=== PATIENT | male | born 1950 | race Caucasian/White ===

== ENCOUNTER 2017-12-27 13:50 | Emergency (ER) | payer OTHER, MEDICARE ==
[2017-12-27 15:20] LABS: BASO # 0.1 10^3/uL (0.0-0.2); BASO % 0.9 % (0.0-1.0); EOS # 0.2 10^3/uL (0.0-0.50); EOS % 2.1 % (0.0-3.0); HEMATOCRIT 43.9 % (42.0-52.0); HEMOGLOBIN 14.8 g/dl (13.5-17.5); IMMATURE GRANULOCYTE % 0.4 % (0-3.0); LYMPH # 1.8 10^3/uL (1.5-4.5); LYMPH % 25.4 % (24.0-44.0); MEAN CORPUSCULAR HEMOGLOBIN 31.4 pg (27.0-33.0); MEAN CORPUSCULAR HGB CONC 33.7 g/dl (32.0-36.5); MONO # 0.8 10^3/uL (0.0-0.8); MONO % 11.1 % (0.0-5.0); NEUTROPHILS # 4.2 10^3/uL (1.8-7.7); NEUTROPHILS % 60.1 % (36.0-66.0); PLATELET COUNT, AUTOMATED 382 10^3/uL (150-450); RED BLOOD COUNT 4.72 10^6/uL (4.30-6.10); RED CELL DISTRIBUTION WIDTH 12.7 % (11.5-14.5)
[2017-12-27] MEDS: methylPREDNISolone INJ 125 MG/2 ML VIAL (J2930) IV (15:33)
[2017-12-27 15:43] LABS: ANION GAP 4 MEQ/L (8-16); BLOOD UREA NITROGEN 16 MG/DL (7-18); CALCIUM LEVEL 7.5 MG/DL (8.8-10.2); CARBON DIOXIDE LEVEL 29 MEQ/L (21-32); CHLORIDE LEVEL 109 MEQ/L (98-107); CPK CREATINE PHOSPHOKINASE 31 U/L (39-308); CREATININE FOR GFR 0.67 MG/DL (0.70-1.30); GLOMERULAR FILTRATION RATE > 60.0 (>49); GLUCOSE, FASTING 67 MG/DL (70-100); POTASSIUM SERUM 3.8 MEQ/L (3.5-5.1); SODIUM LEVEL 142 MEQ/L (136-145); TROPONIN I < 0.02 NG/ML (< 0.10)
[2017-12-27 15:44] LABS: CK-MB VALUE MASS < 1.0 NG/ML (<3.6); MB/CK RELATIVE INDEX 3.22 (< OR =4); NT-PRO BNP 134 PG/ML (<125)
[2017-12-27] MEDS: IPRATROPIUM 0.5MG/ALBUTEROL 2.5MG INH SOL UD 3ML (DUONEB)(J7620) NEB ×3 (15:46→17:46)
[2017-12-27 16:04] LABS: LACTIC ACID SEPSIS PROTOCOL 0.6 MMOL/L (0.4-2.0)
[2017-12-27 16:18] LABS: ABG BASE EXCESS 2.7 (-2.0-2.0); ABG HCO3 27.5 MEQ/L (22.0-26.0); ABG O2 SATURATION 93.6 % (95.0-99.0); ABG PARTIAL PRESSURE CO2 42.9 mmHg (35.0-45.0); ABG PARTIAL PRESSURE O2 65.2 mmHg (75.0-100.0); ABG STANDARD HCO3 26.8 MEQ/L (22.0-26.0); ABG TOTAL CO2 28.8 MEQ/L (23.0-31.0); ABG pH (ARTERIAL) 7.425 UNITS (7.350-7.450)
== END 2017-12-27 17:54 | disposition home or self-care (01) ==
LOC: M ED 13:50
DX: J44.1 Chronic obstructive pulmonary disease with (acute) exacerbation (principal); R94.31 Abnormal electrocardiogram [ECG] [EKG]; I10 Essential (primary) hypertension; Z87.01 Personal history of pneumonia (recurrent); Z87.891 Personal history of nicotine dependence; Z79.899 Other long term (current) drug therapy
CPT/HCPCS: J2930

== ENCOUNTER → 2020-03-18 | Outpatient (CLI) | payer MEDICARE, OTHER ==
[~2020-03-18] MED LIST: AMLO10TA PO; AMLO1TAB24 PO; ATOR40TA75 PO; CIPR-249 PO; DOCU100C16 PO; FURO20TA2 PO; LISI40TA PO; PERCOCET PO; PRED20TA PO; PROHANCE 279.3MG/ML 15ML VIAL As Ordered ONE; PROV108A INH; SPIR12.9 INH; SPIR1CAP INH; SYMB16INH INH; TIMO0.5S3 OU; TIMO0.5S39 OU; VITA50005 PO
--- NOTE | 2020-05-01 10:48 | REP ---
MULTIPARAMETRIC PROSTATE MRI STUDY WITHOUT AND WITH INTRAVENOUS (IV) GADOLINIUM HISTORY: Rising PSA. COMPARISON: None. CT CONTRAST DOSE: 13 mL of intravenous ProHance. MR TECHNIQUE: Axial, coronal, and sagittal imaging planes are utilized. T1 and T2-weighted sequences include spin echo, fat spin echo, diffusion-weighted scans, and dynamically acquired sequential postcontrast T1 fat sat images. Study is interpreted with an approved computer aided detection system ([email or web address]). Prostate gland is somewhat enlarged with dimensions of 4.6 x 3.2 x 3.2 cm, calculated volume 24.4 mL. There is no evidence of skeletal metastatic disease or pelvic or parapelvic lymphadenopathy. There is some hypertrophy of the central gland. There is a suspicious lesion in the anterior gland, which is large. It is located in the midline anterior base stroma, mid gland stroma, right anterior transition zone, and mid apical anterior stroma. It has a calculated volume of 3.5 mL and diameters of 2.6 x 1.4 x 2.1 cm. It is characterized by very low T2- weighted signal intensity, reduced signal on ACD and increased signal on diffusion-weighted sequences, and mixed distribution of enhancement characteristics. A good portion of the lesion enhances contemporaneously with the fairly vascular background prostate tissue with washout kinetics. Clinically significant cancer is highly likely. There is no apparent extraprostatic extent. There is a benign appearing nodule posterior to the low signal intensity lesion. PI-RADS Category 5 out of 5 lesion. Lesion number two is in the right mid lateral transition zone 0.3 mL in calculated volume, 1.2 x 0.6 x 1.0 cm in diameter. This is an ill-defined area of somewhat linear low T2 signal without alteration on diffusion-weighted sequences. There is no hypervascularity observed. Clinically significant cancer is felt to be unlikely. PI-RADS 2 out of 5. IMPRESSION: Large lesion in the anterior gland highly suspicious for prostate carcinoma. No evidence of extraprostatic extension. Two lesions are identified and submitted for consideration of MR ultrasound fusion directed needle biopsy. [facility]
== END ==
LOC: M RAD 11:30
PROVIDERS: ATTEND Nurse Practitioner Women's Health
DX: R97.20 Elevated prostate specific antigen [PSA] (principal); C61 Malignant neoplasm of prostate
CPT/HCPCS: 72197; A9576

== ENCOUNTER → 2020-04-08 | Outpatient (REF) | payer OTHER, MEDICARE ==
[~2020-04-08] MED LIST changes: -PROHANCE 279.3MG/ML 15ML VIAL As Ordered ONE
--- NOTE | 2020-05-09 08:47 | REPPI ---
HISTORY: Prostate cancer, elevated PSA. FINDINGS: Transrectal ultrasound guidance was provided for Dr. Harrison, who performed ultrasound-guided biopsy of the prostate. Biopsy is performed using MR ultrasound fusion with utilization of the MRI prostate 03/18/20. [facility]
== END ==
LOC: M SMT PRO 12:55
PROVIDERS: ATTEND Urology
DX: C61 Malignant neoplasm of prostate (principal)
CPT/HCPCS: 55700; 76942; G0416; G0463

== ENCOUNTER → 2020-04-24 | Outpatient (CLI) | payer OTHER, MEDICARE | LOC: M LABSMTC 11:57 | PROVIDERS: ATTEND Anesthesiology | DX: Z01.812 Encounter for preprocedural laboratory examination (principal); Z20.828 Contact with and (suspected) exposure to other viral communicable diseases | CPT/HCPCS: C9803; U0003 ==

== ENCOUNTER 2020-04-29 05:57 | Inpatient (IN) | payer OTHER ==
[~2020-04-29] VITALS: Ht 167.6 cm; Wt 70.8 kg
[2020-04-29] VITALS (8 sets, daily range): BP systolic 120–145; BP diastolic 55–65
[~2020-04-29 05:57] MED LIST changes: -CIPR-249 PO; -DOCU100C16 PO; -PERCOCET PO; -SPIR12.9 INH; -TIMO0.5S3 OU
[2020-04-29] MEDS ORDERED: HEPARIN SOD (PORCINE) 5000UNITS/ML 1ML VIAL/SYRINGE As Ordered ONE (06:16)
[2020-04-29] MEDS ORDERED: ceFAZolin 2 GM/D5W 50 ML IV BAG (J0690 PER 500MG) As Ordered ONE (06:16)
[2020-04-29] MEDS ORDERED: LR 1,000 ML IV ONE (06:30)
[2020-04-29] MEDS ORDERED: ceFAZolin SOD 2 GM in IV 1 EA IV ONE (06:30)
[2020-04-29] MEDS ORDERED: HEPARIN SOD (PORCINE) 5000UNITS/ML 1ML VIAL/SYRINGE SQ ONE (06:30)
[2020-04-29] MEDS ORDERED: MIDAZOLAM INJ 2MG/2ML VIAL (J2250 PER 1MG) As Ordered ONE (07:00)
[2020-04-29] MEDS ORDERED: fentaNYL 250 MCG/5 ML INJECTION (J3010) As Ordered ONE (07:00)
[2020-04-29] MEDS ORDERED: propofoL 500 MG/50 ML VIAL As Ordered ONE (07:01)
[2020-04-29] MEDS ORDERED: ROCURONIUM BROMIDE 50 MG/5 ML VIAL As Ordered ONE (07:04)
[2020-04-29] MEDS ORDERED: LIDOCAINE 2% 100MG/5ML SDV (FOR ANES.) As Ordered ONE (07:04)
[2020-04-29] MEDS ORDERED: ONDANSETRON 4MG/2ML VIAL As Ordered ONE (07:14)
[2020-04-29] MEDS ORDERED: dexameTHASONE 4 MG/ML 1ML VIAL (J1100 PER 1MG) As Ordered ONE (07:14)
[2020-04-29] MEDS ORDERED: BUPIVACAINE HCL 0.25% 30ML VIAL As Ordered ONE ×2 (07:19→07:20)
[2020-04-29] MEDS ORDERED: LIDOCAINE 1% SDV 30ML VIAL As Ordered ONE (07:19)
[2020-04-29] MEDS ORDERED: ACETAMINOPHEN TAB 650MG DOSE (2X325MG) PO PRN (07:45)
[2020-04-29] MEDS ORDERED: PERCOCET 5MG/325MG TAB PO PRN (07:45)
[2020-04-29] MEDS ORDERED: MORPHINE 2 MG/ML 1ML VIAL (J2270) IV PRN ×2 (07:45→12:45)
[2020-04-29] MEDS ORDERED: ALBUTEROL 90 MCG/ACT 8GM HFA INHALER INH PRN (07:45)
[2020-04-29] MEDS ORDERED: ONDANSETRON 4MG/2ML VIAL IV PRN ×2 (07:45→12:45)
[2020-04-29] MEDS: HEPARIN SOD (PORCINE) 5000UNITS/ML 1ML VIAL/SYRINGE SC SCH (07:49)
[2020-04-29] MEDS ORDERED: METOCLOPRAMIDE INJ 10MG/2ML VIAL (J2765 PER 1) As Ordered ONE (08:20)
[2020-04-29] MEDS ORDERED: TIMO0.5S3 OU (08:28)
[2020-04-29] MEDS ORDERED: SPIR12.9 INH (08:28)
[2020-04-29] MEDS ORDERED: SUGAMMADEX SODIUM 500 MG/5 ML VIAL (BRIDION) As Ordered ONE (08:30)
[2020-04-29] MEDS ORDERED: VECURONIUM BROMIDE 10MG VIAL As Ordered ONE (08:31)
[2020-04-29] MEDS ORDERED: GLYCOPYRROLATE INJ 0.2 MG/ML 2 ML VIAL As Ordered ONE (08:55)
[2020-04-29] MEDS ORDERED: amLODIPine 5 MG TAB PO SCH (09:00)
[2020-04-29] MEDS ORDERED: ACETAMINOPHEN 1000MG 100ML IV BTL (OFIRMEV) (J0131 PER 10MG) As Ordered ONE (09:31)
[2020-04-29] MEDS ORDERED: HYDROmorphone HCL 2 MG/ML 1ML VIAL (J1170) As Ordered ONE (10:56)
[2020-04-29] MEDS ORDERED: ALBUTEROL SULFATE 2.5 MG/0.5 ML INH NEB SOLN As Ordered ONE (12:00)
[2020-04-29] MEDS ORDERED: oxyCODONE 5MG TAB As Ordered ONE (12:16)
[2020-04-29] MEDS: oxyCODONE 5MG TAB PO PRN ×2 (12:19→12:57)
[2020-04-29 12:25] LABS: HEMATOCRIT 46.8 % (42.0-52.0); HEMOGLOBIN 15.3 g/dl (13.5-17.5); MEAN CORPUSCULAR HEMOGLOBIN 31.8 pg (27.0-33.0); MEAN CORPUSCULAR HGB CONC 32.7 g/dl (32.0-36.5); MEAN CORPUSCULAR VOLUME 97.3 fl (80.0-96.0); PLATELET COUNT, AUTOMATED 254 10^3/uL (150-450); RED BLOOD COUNT 4.81 10^6/uL (4.30-6.10); WHITE BLOOD COUNT 9.6 10^3/uL (4.0-10.0)
[2020-04-29] MEDS ORDERED: METOCLOPRAMIDE INJ 10MG/2ML VIAL (J2765 PER 1) IV PRN (12:45)
[2020-04-29] MEDS ORDERED: LR 1,000 ML IV SCH (12:45)
[2020-04-29] MEDS ORDERED: ALBUTEROL SULFATE 2.5 MG/0.5 ML INH NEB SOLN INH ONE (12:45)
[2020-04-29] MEDS ORDERED: fentaNYL 100 MCG/2 ML INJECTION (J3010) IV PRN (12:45)
--- NOTE | 2020-04-29 12:47 | ROOPDOC ---
[facility] Report Of Operation Report of Operation DATE OF PROCEDURE: 04/29/20 PREPROCEDURE DIAGNOSES: Prostate Cancer. POSTPROCEDURE DIAGNOSES: Prostate Cancer, Ventral Hernia. PROCEDURE: Robotic-assisted Laparoscopic Radical Prostatectomy with Bilateral Pelvic Lymph Node Dissection, Ventral Hernia Repair. SURGEON: Whitney Lazo MD JUNIOR ACCOUNTANT: Angela Syed NP ANESTHESIA: General. OPERATIVE INDICATIONS: This is a 70 year old male with intermediate risk clinical T1c [place] 3+4 prostate cancer, here today for the above procedure for treatment. DESCRIPTION OF PROCEDURE: The patient was brought to the operating room and general anesthesia was induced. Prophylactic antibiotics were infused. He was then placed in the supine position and prepped and draped in the usual sterile fashion. At this point, a Hurst catheter was inserted into the bladder and the balloon was filled with 10 mL of sterile water. We then made a midline incision just above the umbilicus for an 8 mm port. Of note the patient was found to have a ventral hernia containing a small amount of omentum just above the supraumbilical incision. A Veress needle was utilized to achieve pneumoperitoneum. Next, an 8 mm port was inserted into the incision and subsequently a camera was inserted. There were no injuries from the Veress needle or initial trocar placement. Then three robotic ports were placed in the usual configuration in line just below the level of the umbilicus. A 12 mm certified ophthalmic surgical assistant port was placed just la teral and at the level of the umbilicus. Once all the ports were placed, the robot was docked. Lysis of adhesions between the sigmoid colon and abdominal wall was then performed. Next, the bladder was then released from the anterior abdominal wall using electrocautery. Once the bladder was dropped, the fat overlying the prostate was cleared using electrocautery. The superficial dorsal vein was controlled with electrocautery. The endopelvic fascia was opened on both sides and the dorsal venous complex was cleared. Next, a #0 Vicryl [id number] stitch was placed around the dorsal venous complex. Once that was done, the bladder was opened and dissected away from the prostate. At this point, the prostate was lifted up. The vasa deferentia were identified in the midline. They were controlled with electrocautery and then transected. The seminal vesicles were also dissected off bilaterally. After carefully dissecting the prostate off the rectum using cold scissors, and ligating and transecting the pedicles, the prostate was only connected by the urethra. At this point, the dorsal venous complex was transected with electrocautery. The urethra was then opened and the catheter was withdrawn and the posterior urethra was transected, thus freeing the prostate. At this point, we checked for hemostasis and it did appear very good. Next, we performed bilateral pelvic lymph node dissection. This was done in a standard fashion. The limits of dissection were the iliac vein proximally, the obturator nerve distally, the pelvic sidewall laterally, and the bladder medially. All lymphatic tissue within these limits was removed. I performed the same procedure on both the right and left sides. Hemostasis was then obtained. The lymphatic packets were then placed in separate Endo Catch bags for future retrieval. Once hemostasis was confirmed, I then moved on to perform the vesicourethral anastomosis. The vesicourethral anastomosis was performed in running fashion using a Quill stitch. Once this was done, the final #20-Greek Hurst catheter was placed. The balloon was filled with 15 mL of sterile water. Upon completion of the vesicourethral anastomosis, it was tested by filling the bladder with sterile water. The anastomosis appeared to be watertight. At this point, the prostate and seminal vesicles were placed in an Endo Catch bag for future retrieval. The robot was then undocked. A Chaya fascial closure device was utilized to place a #0 Vicryl suture between the fascia of the 12 mm certified ophthalmic surgical assistant port. At this point, a Fabian- Ordaz drain was brought in through the left robotic port skin site and the drain was positioned anterior to the bladder. The drain was secured to the skin with #2-0 Ethilon suture. Next, all the remaining ports were removed and there did not appear to be any bleeding from any of the port sites. The prostate, as well as the lymphatic packets were then extracted from the camera port site after the skin was extended. The fascia in this incision was then closed with a running #0 Vicryl stitch. Of note the contents of the ventral hernia were reduced back into the abdomen, and the ventral hernia was closed along with the extraction incision. The previously placed #0 Vicryl free ties through the certified ophthalmic surgical assistant port were then tied down and all incisions were irrigated. Last, all of the incisions were closed with running subcuticular #4-0 Monocryl sutures. Local anesthesia was applied. Dermabond was then applied to the incisions. This marked the conclusion of the procedure. The patient was then awakened from anesthesia and transported to the recovery room in stable condition. ESTIMATED BLOOD LOSS: 75 mL. COMPLICATIONS: None. SPECIMENS: Prostate and seminal vesicles, right pelvic lymph nodes, left pelvic lymph nodes. PLAN: The patient will be admitted to the hospital postoperatively, and he will likely be discharged home within the next 1-2 days. WHITNEY LAZO MD Apr 29, 2020 12:47
[2020-04-29 12:56] LABS: BLOOD UREA NITROGEN 14 MG/DL (7-18); CALCIUM LEVEL 8.6 MG/DL (8.8-10.2); CARBON DIOXIDE LEVEL 27 MEQ/L (21-32); CHLORIDE LEVEL 105 MEQ/L (98-107); CREATININE FOR GFR 1.12 MG/DL (0.70-1.30); GLOMERULAR FILTRATION RATE > 60.0 (>42); GLUCOSE, FASTING 130 MG/DL (70-100); POTASSIUM SERUM 4.3 MEQ/L (3.5-5.1); SODIUM LEVEL 137 MEQ/L (136-145)
[2020-04-29] MEDS: SYMBICORT 160/4.5MCG INHALER 6GM INH SCH ×2 (13:25→20:38)
[2020-04-29] MEDS: TIOTROPIUM INHALER/CAPSULE (SPIRIVA) INH SCH (13:25)
[2020-04-29] MEDS: TIMOLOL MALEATE 0.5% OPHTH SOLN 5 ML OU SCH (15:26)
[2020-04-29] MEDS: DOCUSATE SODIUM 100 MG CAP PO SCH ×2 (15:26→20:20)
[2020-04-29] MEDS: FUROSEMIDE 20 MG TAB PO SCH (15:54)
[2020-04-29] MEDS: ATORVASTATIN 20 MG TAB PO SCH (15:54)
[2020-04-29] MEDS: NS 1,000 ML IV SCH (16:03)
[2020-04-29] MEDS: ceFAZolin SOD 1 GM in D5W MINI-BAG PLUS 50 ML IV SCH (16:03)
[2020-04-30] VITALS (7 sets, daily range): BP systolic 116–166; BP diastolic 58–79
[2020-04-30] MEDS: ceFAZolin SOD 1 GM in D5W MINI-BAG PLUS 50 ML IV SCH (00:10)
[2020-04-30] MEDS: HEPARIN SOD (PORCINE) 5000UNITS/ML 1ML VIAL/SYRINGE SC SCH ×3 (05:14→19:57)
[2020-04-30] MEDS: NS 1,000 ML IV SCH (06:33)
[2020-04-30] MEDS: PERCOCET 5MG/325MG TAB PO PRN ×2 (06:35→20:18)
[2020-04-30 07:16] LABS: HEMATOCRIT 40.6 % (42.0-52.0); HEMOGLOBIN 13.5 g/dl (13.5-17.5); MEAN CORPUSCULAR HEMOGLOBIN 32.2 pg (27.0-33.0); MEAN CORPUSCULAR HGB CONC 33.3 g/dl (32.0-36.5); MEAN CORPUSCULAR VOLUME 96.9 fl (80.0-96.0); PLATELET COUNT, AUTOMATED 233 10^3/uL (150-450); RED BLOOD COUNT 4.19 10^6/uL (4.30-6.10); WHITE BLOOD COUNT 10.4 10^3/uL (4.0-10.0)
[2020-04-30 07:33] LABS: BLOOD UREA NITROGEN 12 MG/DL (7-18); CALCIUM LEVEL 8.1 MG/DL (8.8-10.2); CARBON DIOXIDE LEVEL 26 MEQ/L (21-32); CHLORIDE LEVEL 105 MEQ/L (98-107); CREATININE FOR GFR 0.94 MG/DL (0.70-1.30); GLOMERULAR FILTRATION RATE > 60.0 (>42); GLUCOSE, FASTING 112 MG/DL (70-100); POTASSIUM SERUM 4.2 MEQ/L (3.5-5.1); SODIUM LEVEL 136 MEQ/L (136-145)
[2020-04-30] MEDS: TIOTROPIUM INHALER/CAPSULE (SPIRIVA) INH SCH (07:33)
[2020-04-30] MEDS: SYMBICORT 160/4.5MCG INHALER 6GM INH SCH ×2 (07:34→19:32)
--- NOTE | 2020-04-30 07:43 | IPNPDOC ---
Subjective Review oF Systems Chief Complaint The patient is a 70-year-old male admitted with a reason for visit of Prostate Cancer. Events since Last Encounter No acute events o/n. Good pain control. No n/v. Tolerating GI soft diet. Has not ambulated yet. No f/c/ns. Objective Physical Examination General Exam: Alert, Cooperative, No Acute Distress ABDOMEN EXAM: Soft, Tenderness (minimal), Other (incisions clean/dry/intact; TONY w/ serosanguinous output) Other physical findings catheter draining kiara yellow urine Vital Signs/I&O Vital Signs Date Time Temp Pulse Resp B/P (MAP) Pulse Ox O2 Delivery O2 Flow Rate FiO2 04/30/20 06:35 20 04/30/20 06:00 98.5 57 120/58 (78) 94 Nasal Cannula 2.0 I&O- Last 24 Hours up to 6 AM 04/30/20 06:00 Intake Total 2295 ml Output Total 1290 ml Balance 1005 ml Laboratory Data Labs 24H Laboratory Tests 2 04/29/20 12:11: Nucleated Red Blood Cells % (auto) 0.0, Anion Gap 5L, Glomerular Filtration Rate > 60.0, Calcium Level 8.6L 04/30/20 06:46: Nucleated Red Blood Cells % (auto) 0.0, Anion Gap 5L, Glomerular Filtration Rate > 60.0, Calcium Level 8.1L CBC/BMP Laboratory Tests 04/29/20 12:11 04/30/20 06:46 Assessment/Plan Date Seen The patient was seen on 04/30/20. Patient Summary This is a 70 y/o M POD1 s/p RALP w/ BPLND and ventral hernia repair. He is doing well. Hb 13.5 Cr 0.9. Good UOP. Minimal TONY output. Plan/VTE VTE Prophylaxis Ordered?: Yes VTE Exclusion Mechanical Proph: N/A:VTE Prophy Ordered VTE Exclusion Pharmacological: N/A:VTE Prophy Ordered Plan/Urinary Catheter Urinary Catheter: Other Catheter: (catheter needs to stay in for at least 7 days for healing of vesicourethral anastomosis) Plan - d/c IVF - continue home meds - percocet prn pain - ambulate - SCDs when in bed - SQH - incentive spirometry - advance diet as tolerated - possible discharge home later today w/ catheter WHITNEY LAZO MD Apr 30, 2020 07:43
[2020-04-30] MEDS ORDERED: amLODIPine 5 MG TAB PO SCH (09:00)
[2020-04-30] MEDS: FUROSEMIDE 20 MG TAB PO SCH (09:35)
[2020-04-30] MEDS: lisinopriL 20 MG TAB PO SCH (09:35)
[2020-04-30] MEDS: TIMOLOL MALEATE 0.5% OPHTH SOLN 5 ML OU SCH (09:35)
[2020-04-30] MEDS: DOCUSATE SODIUM 100 MG CAP PO SCH ×2 (09:35→19:57)
[2020-04-30] MEDS: ATORVASTATIN 20 MG TAB PO SCH (09:35)
[2020-05-01 02:00] VITALS: BP 126/71
[2020-05-01 06:00] VITALS: BP 144/80
[2020-05-01] MEDS: HEPARIN SOD (PORCINE) 5000UNITS/ML 1ML VIAL/SYRINGE SC SCH ×3 (06:00→20:28)
[2020-05-01 06:55] LABS: HEMATOCRIT 40.9 % (42.0-52.0); HEMOGLOBIN 13.6 g/dl (13.5-17.5); MEAN CORPUSCULAR HEMOGLOBIN 32.3 pg (27.0-33.0); MEAN CORPUSCULAR HGB CONC 33.3 g/dl (32.0-36.5); MEAN CORPUSCULAR VOLUME 97.1 fl (80.0-96.0); PLATELET COUNT, AUTOMATED 222 10^3/uL (150-450); RED BLOOD COUNT 4.21 10^6/uL (4.30-6.10); WHITE BLOOD COUNT 9.4 10^3/uL (4.0-10.0)
[2020-05-01 07:19] LABS: BLOOD UREA NITROGEN 13 MG/DL (7-18); CALCIUM LEVEL 8.3 MG/DL (8.8-10.2); CARBON DIOXIDE LEVEL 28 MEQ/L (21-32); CHLORIDE LEVEL 104 MEQ/L (98-107); CREATININE FOR GFR 0.78 MG/DL (0.70-1.30); GLOMERULAR FILTRATION RATE > 60.0 (>42); GLUCOSE, FASTING 89 MG/DL (70-100); POTASSIUM SERUM 4.1 MEQ/L (3.5-5.1); SODIUM LEVEL 138 MEQ/L (136-145)
[2020-05-01] MEDS: SYMBICORT 160/4.5MCG INHALER 6GM INH SCH ×2 (07:25→17:59)
[2020-05-01] MEDS ORDERED: CALCIUM CARBONATE 500 MG CHEW U/D PO PRN (08:15)
--- NOTE | 2020-05-01 08:29 | IPNPDOC ---
Subjective Review oF Systems Chief Complaint The patient is a 70-year-old male admitted with a reason for visit of Prostate Cancer. Events since Last Encounter Patient had a drop in O2 sat to the 70s when taken off supplemental O2 yesterday evening. He noted some SOB at the time. He has been stable back on 2L NC since then. Denies chest pain. Notes heartburn when eating. No n/v. Passing some flatus. Ambulating ok, but noted some weakness yesterday. No f/c/ns. Objective Physical Examination General Exam: Alert, Cooperative, No Acute Distress ABDOMEN EXAM: Soft, Tenderness (minimal), Other (incisions clean/dry/intact; TONY w/ serosanguinous output) Neuro Exam: Normal Speech Psych Exam: Mental status NL, Mood NL Other physical findings catheter draining light pink urine Vital Signs/I&O Vital Signs Date Time Temp Pulse Resp B/P (MAP) Pulse Ox O2 Delivery O2 Flow Rate FiO2 05/01/20 08:00 93 Nasal Cannula 2.0 05/01/20 06:00 97.9 50 18 144/80 (101) I&O- Last 24 Hours up to 6 AM 05/01/20 06:00 Intake Total 1550 ml Output Total 1045 ml Balance 505 ml Laboratory Data Labs 24H Laboratory Tests 2 05/01/20 06:32: Nucleated Red Blood Cells % (auto) 0.0, Anion Gap 6L, Glomerular Filtration Rate > 60.0, Calcium Level 8.3L CBC/BMP Laboratory Tests 05/01/20 06:32 Assessment/Plan Date Seen The patient was seen on 05/01/20. Patient Summary This is a 70 y/o M POD2 s/p RALP w/ BPLND and ventral hernia repair. Hb stable. Cr w/i normal limits. Good UOP. Minimal TONY output. Plan/VTE VTE Prophylaxis Ordered?: Yes VTE Exclusion Mechanical Proph: N/A:VTE Prophy Ordered VTE Exclusion Pharmacological: N/A:VTE Prophy Ordered Plan/Urinary Catheter Urinary Catheter: Other Catheter: (catheter needs to stay in for at least 7 days for healing of vesicourethral anastomosis) Plan - wean O2 as tolerated - ambulate - tums prn heartburn - continue home meds - strict I/Os - SCDs in bed - SQH - incentive spirometry - regular diet - possible discharge home later today WHITNEY LAZO MD May 01, 2020 08:29
[2020-05-01] MEDS: PERCOCET 5MG/325MG TAB PO PRN ×3 (09:03→20:31)
[2020-05-01] MEDS: ATORVASTATIN 20 MG TAB PO SCH (09:04)
[2020-05-01] MEDS: FUROSEMIDE 20 MG TAB PO SCH (09:05)
[2020-05-01] MEDS: TIMOLOL MALEATE 0.5% OPHTH SOLN 5 ML OU SCH (09:06)
[2020-05-01] MEDS: lisinopriL 20 MG TAB PO SCH (09:06)
[2020-05-01] MEDS: DOCUSATE SODIUM 100 MG CAP PO SCH ×2 (09:06→20:27)
[2020-05-01] MEDS: CIPROFLOXACIN 500MG TABLET PO SCH (09:06)
[2020-05-01 10:00] VITALS: BP 133/73
[2020-05-01 14:00] VITALS: BP 99/61
[2020-05-01] MEDS ORDERED: ISOVUE-370 76% 100ML VIAL As Ordered ONE (15:55)
--- NOTE | 2020-05-01 17:23 | REPVR ---
PROCEDURE INFORMATION: Exam: CT Angiography Chest With Contrast Exam date and time: 05/01/2020 4:32 PM Age: 70 years old Clinical indication: Shortness of breath; Additional info: SOB, post op, hypoxia TECHNIQUE: Imaging protocol: Computed tomographic angiography of the chest with intravenous contrast. 3D rendering (Not supervised by radiologist): MIP reconstructed images were created by the technologist. Radiation optimization: All CT scans at this facility use at least one of these dose optimization techniques: automated exposure control; mA and/or kV adjustment per patient size (includes targeted exams where dose is matched to clinical indication); or iterative reconstruction. Contrast material: ISOVUE 370; Contrast volume: 75 ml; Contrast route: INTRAVENOUS (IV); COMPARISON: CR PORTABLE CHEST X-RAY 12/27/2017 3:13 PM FINDINGS: Pulmonary arteries: Normal. No pulmonary emboli. Aorta: Moderate aortic arch, branch, and descending thoracic aortic atherosclerotic calcification without ectasia. Thyroid: The bilateral thyroid lobes are unremarkable. Lungs: A 4.9 mm noncalcified pulmonary nodule is noted in the lateral segment of the right middle lobe (LOC 244.9). Bilateral lower lobe pulmonary atelectasis. Bilateral lower lobe endobronchial mucous plugging. There is mild centrilobular and paraseptal emphysema bilaterally, most extensively in the upper lung zones. Pleural space: Minimal bilateral pleural effusions. No pneumothorax. Heart: Left main, LAD, LCx and RCA calcified coronary atherosclerosis. Lymph nodes: No enlarged lymph nodes. Bones/joints: Unremarkable. No acute fracture. Soft tissues: Left chest wall soft tissue emphysema. IMPRESSION: 1. No pulmonary embolism identified. 2. Bilateral lower lobe pulmonary atelectasis. 3. Bilateral lower lobe endobronchial mucous plugging. 4. Pulmonary emphysema. 5. Minimal bilateral pleural effusions. 6. Noncalcified right middle lobe pulmonary nodule. For patients at low risk (minimal or absent history of smoking and of other known risk factors), no routine follow-up is indicated. For patients at high risk (history of smoking or of other known risk factors), consider optional CT at 12 months. (Lucila et al., Fleischner Society, 2017). 7. Left chest wall soft tissue emphysema. Clinical correlation (procedural history? injury?) is recommended. 8. Coronary atherosclerosis. Electronically signed by: Chemo Javier On 05/01/2020 17:22:53 PM
[2020-05-01 17:47] LABS: ABG BASE EXCESS 2.1 (-2.0-2.0); ABG HCO3 26.3 MEQ/L (22.0-26.0); ABG O2 SATURATION 85.3 % (95.0-99.0); ABG PARTIAL PRESSURE CO2 39.7 mmHg (35.0-45.0); ABG TOTAL CO2 27.5 MEQ/L (23.0-31.0); ABG pH (ARTERIAL) 7.439 UNITS (7.350-7.450)
[2020-05-01 17:50] LABS: ABG PARTIAL PRESSURE O2 45.9 mmHg (75.0-100.0)
[2020-05-01 18:00] VITALS: BP 126/64
--- NOTE | 2020-05-01 18:15 | CR.PDOC ---
General Date of Consultation: May 01, 2020 Referring Provider: WHITNEY LAZO MD Consultation REASON FOR CONSULTATION/CHIEF COMPLAINT: Hypoxia HISTORY OF PRESENT ILLNESS: 70 year old male with PMH of COPD, CHF, GERD, Hiatal hernia, HTN, HLD, Prostate cancer was admitted under the urology service and underwent Robotic-assisted Laparoscopic Radical Prostatectomy with Bilateral Pelvic Lymph Node Dissection, Ventral Hernia Repair on 04/29/20. Today he is post op day 2 and patient still requiring 2 liters of oxygen. On ambulation patient is desaturating to 76% in room air and when ambulating with 2 L oxygen he is going down to 86%. At rest his oxygenation is 88% to 90% in room air. Patient tells me he has long h/o COPD not on oxygen however he becomes easily SOB on minor exertion and has to sit and rest and catch his breath this has been going on for many months. His PMD has said that his oxygen is low during office visits. He has seen the pulmonary at the [facility] 2 years ago but has not been able to see them since as his appointment was cancelled one then resceduled for earlier this year when the pandemic started so was cancelled again. He has chronic cough for 2 years and is able to bring up the phlegm maximum inthe morning when he wakes up. But now due to the pain after surgery having dif ficulty with coughing. ALLERGIES: Please see below. HOME MEDICATIONS: Please see below. PAST MEDICAL HISTORY: HTN, HLD, COPD, CHF, Prostate Cancer, GERD, Asthma as a child. PAST SURGICAL HISTORY: vasectomy FAMILY HISTORY: Asthma in father, Mother cancer SOCIAL HISTORY: Ex smoker REVIEW OF SYSTEMS: As per HPI. All other 11 points are negative PHYSICAL EXAMINATION: VITAL SIGNS: Please see below. GENERAL APPEARANCE: laying in bed in no distress, Oxygen saturation 85% at rest. HEENT: NC/AT moist mucous membranes. RESPIRATORY: Clear to auscultation, overall diminished breath sounds. CARDIOVASCULAR: s1, s2 regular, normal rate, No Rub/ Murmur or gallop ABDOMEN: Soft , tender in the lower abdomen at the surgical site, bowel sounds normal EXTREMITIES: No edema LABORATORY DATA: Please see below. ASSESSMENT/PLAN: COPD with Chronic bronchitis with atelectasis which has now progressed to needing oxygen at rest CT angio negative for PE , shows emphysema and endo bronchial mucous plugging of the lower lobes. minimal b/l pleural effusions Acapella, incentive spirometry. Encouraged to cough. continue symbicort, spiriva, lasix ABG shows hypoxia with pO2 of 45 at rest will need home oxygen with portability on discharge. Hypertension BP slightly low will hold night dose of amlodipine can continue lisinopril with hold parameters. HLD continue statin. Prostate cancer s/p surgery as per urology on ciprofloxacin. Vital Signs/I&O Vital Signs Date Time Temp Pulse Resp B/P (MAP) Pulse Ox O2 Delivery O2 Flow Rate FiO2 05/01/20 14:15 20 05/01/20 14:00 98.7 51 99/61 (74) 90 Room Air 05/01/20 10:00 2.0 I&O- Last 24 Hours up to 6 AM 05/01/20 07:00 Intake Total 1025 ml Output Total 1060 ml Balance -35 ml Laboratory Data Labs 24H Laboratory Tests 2 05/01/20 06:32: Nucleated Red Blood Cells % (auto) 0.0, Anion Gap 6L, Glomerular Filtration Rate > 60.0, Calcium Level 8.3L CBC/BMP Laboratory Tests 05/01/20 06:32 Allergies Coded Allergies: No Known Allergies (Unverified , 12/27/17) Home Medications Scheduled Amlodipine Besylate (Norvasc) 10 Mg Tablet, 5 MG PO DAILY, (Reported) Atorvastatin Calcium (Atorvastatin Calcium) 40 Mg Tablet, 20 MG PO DAILY, (Reported) Budesonide/Formoterol (Symbicort 160-4.5 Mcg Inhaler) 6 Gm Hfa.aer.ad, 2 PUFF INH BID, (Reported) Ciprofloxacin HCl (Cipro) 500 Mg Tablet, 500 MG PO DAILY@06 for 5 Days, #5 Docusate Sodium (Docusate Sodium) 100 Mg Capsule, 100 MG PO BID, #20 Ergocalciferol (Vitamin D2) (Vitamin D2) 50,000 Units Cap, 50,000 UNITS PO 1XWK, (Reported) Furosemide (Furosemide) 20 Mg Tablet, 20 MG PO DAILY, (Reported) Lisinopril (Lisinopril) 40 Mg Tablet, 20 MG PO DAILY, (Reported) Timolol Maleate (Timoptic-Xe) 0.5% Kim.gel, 1 DROP OU DAILY, (Reported) Tiotropium [place] (Spiriva Respimat) 4 Gm Mist.inhal, 2 INHALATION INH DAILY, (Reported) Scheduled PRN Oxycodone/Acetaminophen (Oxycodone-Acetaminophen 5-325) 1 Each Tablet, 1 TAB PO Q4H PRN for MODERATE/SEVERE PAIN (PS 5-10), #25 TATIANA BEY MD May 01, 2020 16:16
[2020-05-01] MEDS ORDERED: TIOTROPIUM INHALER/CAPSULE (SPIRIVA) INH SCH (20:00)
[2020-05-01] MEDS ORDERED: amLODIPine 5 MG TAB PO SCH (21:00)
[2020-05-01 22:00] VITALS: BP 124/71
[2020-05-02 02:00] VITALS: BP 124/72
[2020-05-02 06:00] VITALS: BP 122/70
[2020-05-02] MEDS: HEPARIN SOD (PORCINE) 5000UNITS/ML 1ML VIAL/SYRINGE SC SCH ×2 (06:02→14:00)
[2020-05-02] MEDS: CIPROFLOXACIN 500MG TABLET PO SCH (06:02)
[2020-05-02] MEDS: PERCOCET 5MG/325MG TAB PO PRN (06:04)
[2020-05-02 07:18] LABS: HEMATOCRIT 40.8 % (42.0-52.0); HEMOGLOBIN 13.6 g/dl (13.5-17.5); MEAN CORPUSCULAR HEMOGLOBIN 32.1 pg (27.0-33.0); MEAN CORPUSCULAR HGB CONC 33.3 g/dl (32.0-36.5); MEAN CORPUSCULAR VOLUME 96.2 fl (80.0-96.0); PLATELET COUNT, AUTOMATED 218 10^3/uL (150-450); RED BLOOD COUNT 4.24 10^6/uL (4.30-6.10); WHITE BLOOD COUNT 7.5 10^3/uL (4.0-10.0)
[2020-05-02] MEDS: SYMBICORT 160/4.5MCG INHALER 6GM INH SCH (07:34)
[2020-05-02 07:43] LABS: BLOOD UREA NITROGEN 14 MG/DL (7-18); CALCIUM LEVEL 8.2 MG/DL (8.8-10.2); CARBON DIOXIDE LEVEL 28 MEQ/L (21-32); CHLORIDE LEVEL 101 MEQ/L (98-107); CREATININE FOR GFR 0.73 MG/DL (0.70-1.30); GLOMERULAR FILTRATION RATE > 60.0 (>42); GLUCOSE, FASTING 74 MG/DL (70-100); POTASSIUM SERUM 3.9 MEQ/L (3.5-5.1); SODIUM LEVEL 134 MEQ/L (136-145)
[2020-05-02 08:00] VITALS: O2SAT 91
[2020-05-02 09:12] VITALS: BP 117/70
[2020-05-02] MEDS: DOCUSATE SODIUM 100 MG CAP PO SCH (09:12)
[2020-05-02] MEDS: lisinopriL 20 MG TAB PO SCH (09:12)
[2020-05-02] MEDS: FUROSEMIDE 20 MG TAB PO SCH (09:12)
[2020-05-02] MEDS: ATORVASTATIN 20 MG TAB PO SCH (09:12)
[2020-05-02] MEDS: TIMOLOL MALEATE 0.5% OPHTH SOLN 5 ML OU SCH (09:13)
[2020-05-02 10:00] VITALS: BP 97/59
--- NOTE | 2020-05-02 12:42 | IPNPDOC ---
Subjective Review oF Systems Chief Complaint The patient is a 70-year-old male admitted with a reason for visit of Prostate Cancer. Events since Last Encounter No acute events o/n. Good pain control. Still unable to wean off O2. No chest pain. No n/v. Ambulating well. No f/c/ns. Objective Physical Examination General Exam: Alert, Cooperative, No Acute Distress ABDOMEN EXAM: Soft, Tenderness (minimal), Other (incisions clean/dry/intact) Neuro Exam: Normal Speech Psych Exam: Mental status NL, Mood NL Other physical findings catheter draining yellow urine Vital Signs/I&O Vital Signs Date Time Temp Pulse Resp B/P (MAP) Pulse Ox O2 Delivery O2 Flow Rate FiO2 05/02/20 10:00 97.8 87 18 97/59 (72) 87 Nasal Cannula 1.0 I&O- Last 24 Hours up to 6 AM 05/02/20 06:00 Intake Total 500 ml Output Total 1860 ml Balance -1360 ml Laboratory Data Labs 24H Laboratory Tests 2 05/01/20 17:33: Blood Gas Bicarbonate Standard 26.0, Arterial Blood pH 7.439, Arterial Blood Partial Pressure CO2 39.7, Arterial Blood Partial Pressure O2 45.9*L, Arterial Blood Total CO2 27.5, Arterial Blood HCO3 26.3H, Arterial Blood Base Excess 2.1H, Arterial Blood Oxygen Saturation 85.3L 05/02/20 06:57: Nucleated Red Blood Cells % (auto) 0.0, Anion Gap 5L, Glomerular Filtration Rate > 60.0, Calcium Level 8.2L CBC/BMP Laboratory Tests 05/02/20 06:57 Assessment/Plan Date Seen The patient was seen on 05/02/20. Patient Summary This is a 70 y/o M POD3 s/p RALP w/ BPLND and ventral hernia repair. The hospitalist service was consulted yesterday given the patient's desaturation off of supplemental O2. His CT chest was negative for a PE. It is suspected that the desaturation is related to a progression of his COPD and that home supplemental O2 will be required. Labs are stable. Good UOP. Plan/VTE VTE Prophylaxis Ordered?: Yes VTE Exclusion Mechanical Proph: N/A:VTE Prophy Ordered VTE Exclusion Pharmacological: N/A:VTE Prophy Ordered Plan/Urinary Catheter Urinary Catheter: Other Catheter: (catheter needs to stay in for at least 7 days for healing of vesicourethral anastomosis) Plan - regular diet - percocet prn pain - cont supplemental O2 - cont home meds - SQH - SCDs in bed - ambulate - incentive spirometry - plan discharge home w/ catheter once home O2 is approved by the [place] WHITNEY LAZO MD May 02, 2020 12:42
[2020-05-02] MEDS ORDERED: CIPR-249 PO (12:47)
[2020-05-02] MEDS ORDERED: PERCOCET PO (12:47)
[2020-05-02] MEDS ORDERED: DOCU100C16 PO (12:47)
[2020-05-02 14:00] VITALS: BP 107/59
--- NOTE | 2020-05-12 11:13 | DS ---
DATE OF ADMISSION: 04/29/2020 DATE OF DISCHARGE: 05/02/2020 ADMISSION DIAGNOSIS: Prostate cancer. DISCHARGE DIAGNOSES: Prostate cancer, chronic obstructive pulmonary disease (COPD), hypoxia. ADMITTING PHYSICIAN: Jonathan Harrison MD DISCHARGING PHYSICIAN: Jonathan Harrison MD PROCEDURE PERFORMED: Robotic assisted laparoscopic radical prostatectomy with bilateral pelvic lymph node dissection on 04/29/2020. HISTORY OF PRESENT ILLNESS: This is a 70-year-old male with prostate cancer who underwent the above-listed procedure. He was admitted to the hospital postoperatively. HOSPITALIZATION COURSE: The patient was admitted to the hospital on 04/29/2020 after undergoing surgery for prostate cancer. His postoperative course for the most part was unremarkable. On postoperative day #1, he did have expected amount of postoperative pain. This limited his ability to ambulate on postoperative day #1. All of his labs were within normal limits. His urine output was good and Fabian-Ordaz drain output was minimal. By postoperative day #2, his pain was a little bit better controlled and he was ambulating much better. Of note, we did have some difficulty weaning him off of his oxygen. Specifically, while trying to wean him off of his oxygen, his oxygen saturation would drop to 70%. The hospitalist service was therefore consulted for hypoxia. He had a workup including a CT scan of the chest. This was negative for pulmonary embolism. It showed changes consistent with COPD. It was determined that his oxygen desaturation was related to progression of his already diagnosed COPD. It was also determined that he would likely need to be discharged home on supplemental oxygen. By postoperative day #3, his pain continued to be well- controlled. His Fabian-Ordaz drain was removed. The amount of supplemental oxygen was determined and it was one liter via nasal cannula. [facility] and he was discharged home on postoperative day #3 on home oxygen. He was also discharged home with his catheter in place. He will followup in the urology clinic in approximately 1 week to have his catheter removed and discuss his pathology results. TARYN
== END 2020-05-02 17:05 | disposition home health service (06) | DRG 707 ==
LOC: M OR 05:57 → M MSPAV 14:30
PROVIDERS: ADMIT Urology; ATTEND Urology
PROC: 07BC4ZX Excision of Pelvis Lymphatic, Percutaneous Endoscopic Approach, Diagnostic (ICD-10-PCS; 2020-04-29)
PROC: 0WQF4ZZ Repair Abdominal Wall, Percutaneous Endoscopic Approach (ICD-10-PCS; 2020-04-29)
PROC: 8E0W4CZ Robotic Assisted Procedure of Trunk Region, Percutaneous Endoscopic Approach (ICD-10-PCS; 2020-04-29)
PROC: 0VT04ZZ Resection of Prostate, Percutaneous Endoscopic Approach (ICD-10-PCS; principal; 2020-04-29 07:30)
DX: C61 Malignant neoplasm of prostate (principal); J98.11 Atelectasis; I11.0 Hypertensive heart disease with heart failure; E78.5 Hyperlipidemia, unspecified; J44.9 Chronic obstructive pulmonary disease, unspecified; K43.9 Ventral hernia without obstruction or gangrene; I50.9 Heart failure, unspecified; R09.02 Hypoxemia; K21.9 Gastro-esophageal reflux disease without esophagitis; Z99.81 Dependence on supplemental oxygen; Z79.899 Other long term (current) drug therapy

== ENCOUNTER → 2020-09-04 | Outpatient (CLI) | payer OTHER, MEDICARE ==
[~2020-09-04] MED LIST changes: +CIPR-249 PO; +DOCU100C16 PO; +PERCOCET PO; +SPIR12.9 INH; +TIMO0.5S3 OU
== END ==
LOC: M LAB 10:55
PROVIDERS: ATTEND Urology
DX: C61 Malignant neoplasm of prostate (principal)

== ENCOUNTER → 2020-12-09 | Outpatient (CLI) | payer OTHER, MEDICARE ==
[~2020-12-09] MED LIST changes: -LISI40TA PO; +LISI40TA4 PO
== END ==
LOC: M LAB 09:45
PROVIDERS: ATTEND Urology
DX: C61 Malignant neoplasm of prostate (principal)

== ENCOUNTER → 2021-03-14 | Outpatient (CLI) | payer MEDICARE, OTHER ==
[~2021-03-14] MED LIST changes: +ERGO500029 PO; -VITA50005 PO
== END ==
LOC: M LAB 08:18
PROVIDERS: ATTEND Urology
DX: C61 Malignant neoplasm of prostate (principal)

== ENCOUNTER → 2021-06-26 | Outpatient (CLI) | payer MEDICARE, OTHER | LOC: M LAB 09:32 | PROVIDERS: ATTEND Urology | DX: C61 Malignant neoplasm of prostate (principal) ==

== ENCOUNTER → 2021-09-26 | Outpatient (CLI) | payer OTHER, MEDICARE | LOC: M PLALAB 09:14 → M LAB 09:14 | PROVIDERS: ATTEND Urology | DX: C61 Malignant neoplasm of prostate (principal) ==

== ENCOUNTER → 2021-12-26 | Outpatient (CLI) | payer OTHER | LOC: M LAB 08:41 | PROVIDERS: ATTEND Urology | DX: C61 Malignant neoplasm of prostate (principal) ==

== ENCOUNTER → 2022-03-22 | Outpatient (CLI) | payer OTHER | LOC: M LAB 08:26 | PROVIDERS: ATTEND Urology | DX: C61 Malignant neoplasm of prostate (principal) ==

== ENCOUNTER → 2022-10-03 | Outpatient (CLI) | payer OTHER ==
[~2022-10-03] MED LIST changes: +ALBU6.7H6 INH; -PROV108A INH
== END ==
LOC: M LAB 09:05
PROVIDERS: ATTEND Urology
DX: C61 Malignant neoplasm of prostate (principal)

== ENCOUNTER 2022-12-22 12:17 | Emergency (ER) | payer MEDICARE, OTHER ==
[~2022-12-22] VITALS: Ht 170.2 cm; Wt 68.3 kg
[2022-12-22] MEDS ORDERED: diphenhydrAMINE 50MG/ML VIAL IV ONE (12:50)
[2022-12-22] MEDS ORDERED: FAMOTIDINE 20MG/2ML VIAL IVP ONE (12:50)
[2022-12-22] MEDS ORDERED: methylPREDNISolone 125MG 2ML VIAL IV ONE (12:50)
[2022-12-22] MEDS ORDERED: LOSA50TA28 PO ×2 (14:10→14:13)
[2022-12-22 14:15] VITALS: BP 146/80
== END 2022-12-22 14:32 | disposition home or self-care (01) ==
LOC: M ED 12:17
DX: R22.0 Localized swelling, mass and lump, head (principal); T46.4X5A Adverse effect of angiotensin-converting-enzyme inhibitors, initial encounter; I10 Essential (primary) hypertension; E78.5 Hyperlipidemia, unspecified; J44.9 Chronic obstructive pulmonary disease, unspecified; F17.200 Nicotine dependence, unspecified, uncomplicated; Z79.02 Long term (current) use of antithrombotics/antiplatelets; Z79.811 Long term (current) use of aromatase inhibitors; Z79.899 Other long term (current) drug therapy
CPT/HCPCS: 96374; 99284; J1200; J2930

== ENCOUNTER → 2022-12-31 | Outpatient (CLI) | payer MEDICARE, OTHER ==
[~2022-12-31] MED LIST changes: +LOSA50TA28 PO
== END ==
LOC: M RAD 10:37
PROVIDERS: ATTEND Internal Medicine Pulmonary Disease
DX: Z87.891 Personal history of nicotine dependence (principal)

== ENCOUNTER → 2023-01-13 | Outpatient (REF) | payer MEDICARE, OTHER ==
[2023-01-13 14:19] LABS: APPEARANCE, URINE CLEAR (CLEAR); BACTERIA, URINE AUTO NEGATIVE (NEGATIVE); BILIRUBIN, URINE AUTO NEGATIVE (NEGATIVE); BLOOD, URINE BLOOD NEGATIVE (NEGATIVE); COLOR, URINE YELLOW (YELLOW); GLUCOSE, URINE (UA) AUTO NEGATIVE (NEGATIVE); KETONE, URINE AUTO NEGATIVE (NEGATIVE); LEUKOCYTE ESTERASE, URINE AUTO NEGATIVE (NEGATIVE); NITRITE, URINE AUTO NEGATIVE (NEGATIVE); PROTEIN, URINE AUTO NEGATIVE (NEGATIVE); RBC, URINE AUTO 1 /HPF (0-3); SPECIFIC GRAVITY URINE AUTO 1.019 (1.002-1.035); SQUAMOUS EPITHELIAL CELL UR AU 0 /HPF (0-6); UROBILINOGEN, URINE AUTO 0.2 mg/dL (0.0-2.0); WBC, URINE AUTO 0 /HPF (0-3)
== END ==
LOC: M SMT 13:23
PROVIDERS: ATTEND Urology
DX: N39.3 Stress incontinence (female) (male) (principal)

== ENCOUNTER → 2023-03-28 | Outpatient (CLI) | payer OTHER | LOC: M LAB 08:43 | PROVIDERS: ATTEND Urology | DX: C61 Malignant neoplasm of prostate (principal) ==

== ENCOUNTER → 2023-10-02 | Outpatient (CLI) | payer MEDICARE, OTHER | LOC: M LAB 09:58 | PROVIDERS: ATTEND Urology | DX: C61 Malignant neoplasm of prostate (principal) ==

== ENCOUNTER → 2024-01-31 | Outpatient (CLI) | payer OTHER, MEDICARE | LOC: M RAD 12:35 | PROVIDERS: ATTEND Internal Medicine Pulmonary Disease | DX: Z87.891 Personal history of nicotine dependence (principal) ==

== ENCOUNTER → 2024-03-26 | Outpatient (CLI) | payer MEDICARE, OTHER | LOC: M LAB 09:49 | PROVIDERS: ATTEND Urology | DX: C61 Malignant neoplasm of prostate (principal) ==

== ENCOUNTER → 2024-05-08 | Outpatient (CLI) | payer OTHER ==
[2024-05-08 11:26] LABS: BLOOD UREA NITROGEN 16 MG/DL (9-23); CREATININE FOR GFR 0.97 MG/DL (0.70-1.30); GLOMERULAR FILTRATION RATE > 60.0 (>42)
== END ==
LOC: M LAB 09:50
PROVIDERS: ATTEND Surgery
DX: K43.9 Ventral hernia without obstruction or gangrene (principal)

== ENCOUNTER → 2024-05-15 | Outpatient (CLI) | payer OTHER, MEDICARE, MEDICAID | LOC: M PLAIMG 09:41 | PROVIDERS: ATTEND Surgery | DX: K43.9 Ventral hernia without obstruction or gangrene (principal) ==

== ENCOUNTER → 2024-09-21 | Outpatient (CLI) | payer OTHER, MEDICARE, MEDICAID ==
[~2024-09-21] MED LIST changes: +ALBU2.5V10 INH; +AZEL1SPR4 NARES; +OMEP40CA5 PO; +STRI1AER2 IN; +VENTAER INH; +XALA0.007 OU
== END ==
LOC: M LAB 09:15
PROVIDERS: ATTEND Urology
DX: C61 Malignant neoplasm of prostate (principal)

== ENCOUNTER 2024-09-27 11:24 | Observation (INO) | payer MEDICAID, MEDICARE, OTHER ==
[~2024-09-27] VITALS: Ht 165.1 cm; Wt 76.8 kg
[2024-09-27] MEDS ORDERED: MIDAZOLAM INJ 2MG/2ML VIAL As Ordered ONE (14:48)
[2024-09-27] MEDS ORDERED: fentaNYL 100 MCG/2 ML INJECTION As Ordered ONE (14:48)
[2024-09-27] MEDS ORDERED: LIDOCAINE 2% 100MG/5ML SDV (FOR ANES.) As Ordered ONE (14:49)
[2024-09-27] MEDS ORDERED: propofoL 200 MG/20 ML VIAL As Ordered ONE (14:49)
[2024-09-27] MEDS ORDERED: ONDANSETRON 4MG 2ML VIAL As Ordered ONE (14:49)
[2024-09-27] MEDS ORDERED: ACETAMINOPHEN 1000MG/100ML IV BAG As Ordered ONE (14:49)
[2024-09-27] MEDS ORDERED: ROCURONIUM BROMIDE 50MG/5ML VIAL As Ordered ONE (14:49)
[2024-09-27] MEDS: ceFAZolin SOD 2 GM in IV 1 EA IV ONE (16:11)
[2024-09-27] MEDS ORDERED: KETOROLAC 60MG 2ML VIAL As Ordered ONE (16:26)
[2024-09-27] MEDS ORDERED: SUGAMMADEX SODIUM 500 MG/5 ML VIAL (BRIDION) As Ordered ONE (16:26)
[2024-09-27] MEDS ORDERED: GLYCOPYRROLATE INJ 0.2 MG/ML 2 ML VIAL As Ordered ONE (18:16)
[2024-09-27] MEDS ORDERED: HYDROMORPHONE HCL 0.5 MG/ 0.5 ML SYRINGE IV PRN (18:35)
[2024-09-27] MEDS: LR 1,000 ML IV SCH (18:35)
[2024-09-27] MEDS: ONDANSETRON 4MG 2ML VIAL IV PRN (19:03)
[2024-09-27] MEDS: ALBUTEROL SULFATE 2.5MG/0.5ML INH NEB SOLN INH ONE (19:03)
[2024-09-27] MEDS: fentaNYL 100 MCG/2 ML INJECTION IV PRN (19:04)
[2024-09-27] MEDS: oxyCODONE 5MG TAB PO PRN (19:12)
[2024-09-27 20:15] VITALS: BP 121/67; TEMP 97.5; O2SAT 94
[2024-09-27 20:54] VITALS: BP 118/58; TEMP 97.5; O2SAT 93
[2024-09-27 21:31] VITALS: BP 114/61; TEMP 97.5; O2SAT 93
[2024-09-27 22:26] VITALS: BP 118/64; TEMP 97.3; O2SAT 93
[2024-09-27 23:33] VITALS: BP 127/71; TEMP 97.5; O2SAT 93
[2024-09-28] MEDS: OMEPRAZOLE 20MG CAP PO ONE (00:18)
[2024-09-28] MEDS: NORCO, ANEXSIA 5/325MG TABLET (HYDROcodone/ACETAMINOPHEN) PO PRN (00:20)
[2024-09-28 00:30] VITALS: BP 129/67; TEMP 97.7; O2SAT 94
[2024-09-28 01:32] VITALS: BP 150/78; TEMP 97.7; O2SAT 93
[2024-09-28 04:46] VITALS: BP 126/60; TEMP 97.7; O2SAT 91
[2024-09-28 04:56] VITALS: O2SAT 93
[2024-09-28] MEDS: MORPHINE 2 MG/ML 1ML VIAL IV PRN (05:25)
[2024-09-28] MEDS: AZELASTINE 137MCG NASAL SPY 30 ML (ASTELIN) SCH (09:00)
[2024-09-28] MEDS: OMEPRAZOLE 20MG CAP PO SCH (09:06)
[2024-09-28] MEDS: ATORVASTATIN 20 MG TAB PO SCH (09:07)
[2024-09-28] MEDS: amLODIPine 5 MG TAB PO SCH (09:07)
[2024-09-28] MEDS: FUROSEMIDE 20 MG TAB PO SCH (09:07)
[2024-09-28 12:00] VITALS: BP 146/75; TEMP 97.6; O2SAT 94
[2024-09-28] MEDS: IBUPROFEN 800 MG TAB PO PRN (15:14)
[2024-09-28 20:03] VITALS: BP 121/66; TEMP 97.3; O2SAT 90
[2024-09-28] MEDS: LOSARTAN 50MG TABLET PO SCH (20:12)
[2024-09-28] MEDS: LATANOPROST 0.005% OPHTH SOLN 2.5 ML OU SCH (20:35)
[2024-09-29 04:05] VITALS: BP 127/66; TEMP 97.5; O2SAT 90
[2024-09-29 09:41] VITALS: BP 153/87
[2024-09-29 12:00] VITALS: BP 124/67; TEMP 97.5
== END 2024-09-29 13:15 | disposition home or self-care (01) ==
LOC: M SDC 11:24 → M MS5PR 20:13
PROVIDERS: ADMIT Surgery; ATTEND Surgery
DX: K43.0 Incisional hernia with obstruction, without gangrene (principal); I10 Essential (primary) hypertension; J44.9 Chronic obstructive pulmonary disease, unspecified; E78.00 Pure hypercholesterolemia, unspecified; R32 Unspecified urinary incontinence; Z79.899 Other long term (current) drug therapy; Z85.46 Personal history of malignant neoplasm of prostate; Z88.8 Allergy status to other drugs, medicaments and biological substances; K21.9 Gastro-esophageal reflux disease without esophagitis
CPT/HCPCS: 49596; C1781; G0378; J0131; J0665; J0690; J1100; J1596; J1885; J2250; J2405; J3010; S2900

== ENCOUNTER 2025-02-16 11:51 | Emergency (ER) | payer OTHER, MEDICARE ==
[~2025-02-16] VITALS: Ht 165.1 cm; Wt 71.1 kg
[~2025-02-16 11:51] MED LIST changes: +AMLO-751 PO; -AMLO10TA PO; +LISI40TA10 PO; -LISI40TA4 PO; -TIMO0.5S39 OU; +TIMO5DRO9 OU
[2025-02-16 14:27] LABS: BASO # 0.0 10^3/uL (0.0-0.2); BASO % 0.7 % (0.0-1.0); EOS # 0.1 10^3/uL (0.0-0.5); EOS % 2.0 % (0.0-3.0); LYMPH # 1.4 10^3/uL (1.5-5.0); LYMPH % 25.8 % (24.0-44.0); MONO # 0.6 10^3/uL (0.0-0.8); MONO % 9.8 % (2.0-8.0); NEUTROPHILS # 3.4 10^3/uL (1.5-8.5); NEUTROPHILS % 61.3 % (36.0-66.0); PLATELET COUNT, AUTOMATED 267 10^3/uL (150-450)
[2025-02-16 14:52] LABS: ALT/SGPT 26.0 U/L (7.0-40); AST/SGOT 28.0 U/L (<34); CALCIUM LEVEL 8.9 MG/DL (8.3-10.6); CARBON DIOXIDE LEVEL 30.0 MMOL/L (20-31); CHLORIDE LEVEL 100.0 MMOL/L (98-107); CREATININE FOR GFR 0.92 MG/DL (0.70-1.30); GLOMERULAR FILTRATION RATE 86.8 (>42); POTASSIUM SERUM 3.9 MMOL/L (3.5-5.1); SODIUM LEVEL 139.0 MMOL/L (136-145)
[2025-02-16 15:18] VITALS: BP 130/72; TEMP 96.6; O2SAT 94
== END 2025-02-16 15:40 | disposition home or self-care (01) ==
LOC: M ED 11:51
DX: I73.9 Peripheral vascular disease, unspecified (principal); R00.1 Bradycardia, unspecified; C61 Malignant neoplasm of prostate; Z88.8 Allergy status to other drugs, medicaments and biological substances; Z79.51 Long term (current) use of inhaled steroids; Z79.899 Other long term (current) drug therapy

== ENCOUNTER → 2025-03-08 | Outpatient (CLI) | payer MEDICARE, OTHER | LOC: M RAD 12:49 | PROVIDERS: ATTEND Internal Medicine Pulmonary Disease | DX: Z12.2 Encounter for screening for malignant neoplasm of respiratory organs (principal); Z87.891 Personal history of nicotine dependence; R91.8 Other nonspecific abnormal finding of lung field; J43.2 Centrilobular emphysema; I25.10 Atherosclerotic heart disease of native coronary artery without angina pectoris ==

== ENCOUNTER → 2025-03-18 | Outpatient (CLI) | payer OTHER, MEDICARE | LOC: M LAB 09:32 | PROVIDERS: ATTEND Urology | DX: C61 Malignant neoplasm of prostate (principal) ==

== ENCOUNTER 2025-03-19 09:49 | Day surgery (SDC) | payer MEDICARE, OTHER ==
[2025-03-18] MEDS: LATANOPROST 0.005% OPHTH SOLN 2.5 ML OU SCH (23:50)
[~2025-03-19] VITALS: Ht 167.6 cm; Wt 70.0 kg
[~2025-03-19 09:49] MED LIST changes: +ACETAMINOPHEN 1000MG/100ML IV BAG As Ordered ONE; +KETOROLAC 30 MG/ML 1 ML VIAL As Ordered ONE; +LIDOCAINE 2% 100 MG/5 ML SDV (FOR ANES.) As Ordered ONE; +MIDAZOLAM INJ 2 MG/2 ML VIAL As Ordered ONE; +ONDANSETRON 4MG 2ML VIAL As Ordered ONE; +ROCURONIUM BROMIDE 50MG/5ML VIAL As Ordered ONE; +SUGAMMADEX SODIUM 500 MG/5 ML VIAL As Ordered ONE; +dexAMETHasone 4 MG/ML 1 ML VIAL As Ordered ONE
[2025-03-19] MEDS ORDERED: LR 1,000 ML IV SCH (10:10)
[2025-03-19] MEDS: ceFAZolin SOD 2 GM IV ONCE IV ONE (12:38)
[2025-03-19] MEDS: LR 1,000 ML IV SCH (14:40)
[2025-03-19] MEDS ORDERED: ONDANSETRON 4MG 2ML VIAL IV PRN ×2 (14:40→14:50)
[2025-03-19] MEDS ORDERED: ULTRACET TAB PO PRN ×2 (14:50)
[2025-03-19] MEDS ORDERED: MORPHINE 2 MG/ML 1 ML VIAL IV PRN ×2 (14:50)
[2025-03-19] MEDS ORDERED: MORPHINE 4 MG/ML 1 ML VIAL IV PRN (14:50)
[2025-03-19] MEDS: HYDROMORPHONE HCL 0.5 MG/0.5 ML SYRINGE IV PRN (15:10)
[2025-03-19 16:09] VITALS: BP 115/59; TEMP 97.2; O2SAT 94
[2025-03-19] MEDS: NS (Normal Saline) 0.9% 1,000 ML IV SCH (16:34)
[2025-03-19 16:39] VITALS: BP 123/64; TEMP 97.3; O2SAT 94
[2025-03-19 17:39] VITALS: BP 121/61; TEMP 97; O2SAT 97
[2025-03-19] MEDS: KETOROLAC 30 MG/ML 1 ML VIAL IV SCH (18:34)
[2025-03-19 18:39] VITALS: BP 119/58; TEMP 97.5; O2SAT 97
[2025-03-19 19:45] VITALS: BP 116/66; TEMP 96.8; O2SAT 96
[2025-03-19 21:00] VITALS: BP 114/65; TEMP 97.3; O2SAT 97
[2025-03-19] MEDS: PANTOPRAZOLE 40MG VIAL IV SCH (21:13)
[2025-03-19] MEDS: DOCUSATE SODIUM 100 MG CAPSULE PO SCH (21:13)
[2025-03-20 00:08] VITALS: BP 105/51; TEMP 97.3; O2SAT 97
[2025-03-20 04:00] VITALS: BP 107/61; TEMP 97; O2SAT 97
[2025-03-20 08:00] VITALS: BP 111/61; TEMP 97.2; O2SAT 98
[2025-03-20] MEDS: ATORVASTATIN 20 MG TAB PO SCH (08:12)
[2025-03-20 09:00] VITALS: BP 111/61
[2025-03-20] MEDS: amLODIPine 5 MG TAB PO SCH (09:00)
[2025-03-20] MEDS: FUROSEMIDE 20 MG TAB PO SCH (09:00)
== END 2025-03-20 10:00 | disposition home or self-care (01) ==
LOC: M SDC 09:49 → M MSPAV 16:09 → M SDC 03-20 10:00
PROVIDERS: ATTEND Surgery
DX: K40.90 Unilateral inguinal hernia, without obstruction or gangrene, not specified as recurrent (principal); K66.0 Peritoneal adhesions (postprocedural) (postinfection); I10 Essential (primary) hypertension; J44.9 Chronic obstructive pulmonary disease, unspecified; E78.00 Pure hypercholesterolemia, unspecified; R32 Unspecified urinary incontinence; K21.9 Gastro-esophageal reflux disease without esophagitis; Z79.899 Other long term (current) drug therapy; Z85.46 Personal history of malignant neoplasm of prostate; Z90.79 Acquired absence of other genital organ(s); Z88.8 Allergy status to other drugs, medicaments and biological substances; Z87.891 Personal history of nicotine dependence
CPT/HCPCS: 49650; C1781; J0131; J0665; J0690; J1100; J1171; J1885; J2250; J2405; J2470; J3010

== ENCOUNTER → 2025-06-28 | Outpatient (CLI) | payer OTHER, MEDICARE ==
[~2025-06-28] MED LIST changes: -ACETAMINOPHEN 1000MG/100ML IV BAG As Ordered ONE; -KETOROLAC 30 MG/ML 1 ML VIAL As Ordered ONE; -LIDOCAINE 2% 100 MG/5 ML SDV (FOR ANES.) As Ordered ONE; -MIDAZOLAM INJ 2 MG/2 ML VIAL As Ordered ONE; -ONDANSETRON 4MG 2ML VIAL As Ordered ONE; -ROCURONIUM BROMIDE 50MG/5ML VIAL As Ordered ONE; -SUGAMMADEX SODIUM 500 MG/5 ML VIAL As Ordered ONE; -dexAMETHasone 4 MG/ML 1 ML VIAL As Ordered ONE
== END ==
LOC: M PLAIMG 09:38
PROVIDERS: ATTEND Internal Medicine Pulmonary Disease
DX: R91.8 Other nonspecific abnormal finding of lung field (principal)